=== PATIENT | male | born 1995 ===

== ENCOUNTER 2016-09-02 20:42 | Emergency (ER) | payer OTHER ==
[2016-09-02 20:49] VITALS: BMI 19.3
[2016-09-02 20:52] VITALS: BP 115/70; PULSE 75; RESP 18; TEMP 99.1; O2SAT 97
--- NOTE | 2016-09-02 21:02 | ED PDOC ---
Arrival/HPI - General Historian: Patient - General Chief Complaint: Flu-like Symptoms Time Seen by Provider: 09/02/16 20:53 - History of Present Illness Narrative History of Present Illness (Text): 09/02/16 21:00 21yo male in ED for complaint of sore throat since this morning. Denies drooling , stridor, dysphagia, fever, chills, abdominal pain, nausea, vomiting. (Sandra Dos Santos A) Past Medical History - Provider Review Nursing Documentation Reviewed: Yes - Infectious Disease Hx of Infectious Diseases: None - Cardiac Hx Cardiac Disorders: No - Pulmonary Hx Asthma: Yes Hx Bronchitis: No - Neurological Hx Neurological Disorder: No - HEENT Hx HEENT Disorder: No - Renal Hx Renal Disorder: No - Endocrine/Metabolic Hx Endocrine Disorders: No - Hematological/Oncological Hx Blood Disorders: No - Integumentary Hx Dermatological Disorder: No - Musculoskeletal/Rheumatological Hx Musculoskeletal Disorders: No - Gastrointestinal Hx Gastrointestinal Disorders: No - Genitourinary/Gynecological Hx Genitourinary Disorders: No - Psychiatric Hx Psychophysiologic Disorder: No Hx Substance Use: No - Anesthesia Hx Anesthesia: No Hx Anesthesia Reactions: No Hx Malignant Hyperthermia: No Family/Social History - Physician Review Nursing Documentation Reviewed: Yes Family/Social History: Unknown Family HX Smoking Status: Never Smoked Hx Alcohol Use: No Hx Substance Use: No Allergies/Home Meds Allergies/Adverse Reactions: Allergies No Known Allergies Allergy (Verified 09/02/16 20:49) Review of Systems - Physician Review All systems were reviewed & negative as marked: Yes - Review of Systems Constitutional: Normal Eyes: Normal ENT: Sore Throat Respiratory: Normal Cardiovascular: Normal Gastrointestinal: Normal Genitourinary Male: Normal Musculoskeletal: Normal Skin: Normal Neurological: Normal Endocrine: Normal Hemo/Lymphatic: Normal Psychiatric: Normal Physical Exam Vital Signs Reviewed: Yes Temperature: Afebrile Blood Pressure: Normal Pulse: Regular Respiratory Rate: Normal Appearance: Positive for: Well-Appearing, Non-Toxic, Comfortable Pain Distress: None Mental Status: Positive for: Alert and Oriented X 3 - Systems Exam Head: Present: Atraumatic, Normocephalic Pupils: Present: PERRL Extroacular Muscles: Present: EOMI Conjunctiva: Present: Normal Mouth: Present: Moist Mucous Membranes Pharnyx: Present: ERYTHEMA. No: EXUDATE, TONSILS ENLARGED, Peritonsilar Swelling, Uvular Deviation, Muffled/Hoarse Voice, Strider Neck: Present: Normal Range of Motion Respiratory/Chest: Present: Clear to Auscultation, Good Air Exchange. No: Respiratory Distress, Accessory Muscle Use Cardiovascular: Present: Regular Rate and Rhythm, Normal S1, S2. No: Murmurs Abdomen: Present: Normal Bowel Sounds. No: Tenderness, Distention, Peritoneal Signs Back: Present: Normal Inspection Upper Extremity: Present: Normal Inspection. No: Cyanosis, Edema Lower Extremity: Present: Normal Inspection. No: Edema Neurological: Present: GCS=15, CN II-XII Intact, Speech Normal Skin: Present: Warm, Dry, Normal Color. No: Rashes Psychiatric: Present: Alert, Oriented x 3, Normal Insight, Normal Concentration Vital Signs Temp Pulse Resp BP Pulse Ox 09/02/16 20:49 99.1 F 75 18 115/70 97 Medical Decision Making ED Course and Treatment: I was available for consultation during PA evaluation. The chart reviewed by me , and I agree with disposition. The documented history was done by the physician instructional design consultant. The documented physical exam was done by the physician instructional design consultant. The documented procedures were done by the physician instructional design consultant. ( Toribio Comer) 09/02/16 21:50 PT afebrile, hemodynamically stable. No drooling. No stridor noted. Rapid strep was negative. PT given viscous lido in ED for pain. DC home with lozenges. Advised to do warm salty water gargle. To f/u tiht MR next week for throat culture result. TRT ED for worsening symptoms. (Sandra Dos Santos) - Lab Interpretations Lab Results: Lab Results 09/02/16 21:14: Grp A Beta Strep Ag Negative - Medication Orders Current Medication Orders: Discontinued Medications Lidocaine HCl (Lidocaine 2% Viscous) 15 ml PO Q3H STA Stop: 09/02/16 21:41 Disposition/Present on Arrival - Present on Arrival Any Indicators Present on Arrival: No History of DVT/PE: No History of Uncontrolled Diabetes: No Urinary Catheter: No History of Decub. Ulcer: No History Surgical Site Infection Following: None - Disposition Have Diagnosis and Disposition been Completed?: Yes Disposition Time: 21:45 Patient Plan: Discharge - Disposition Diagnosis: Sore throat Disposition: HOME/ ROUTINE Patient Problems: Current Active Problems Problem Status Diagnosed Sore throat Acute Condition: STABLE Additional Instructions: Follow up with medical record for your result Follow up with your Doctor Return to ED for any new or worsening symptoms Prescriptions: Benzocaine/Menthol [Sore Throat Lozenge] 1 each MM DAILY #20 lozenge Referrals: Kori Zelaya, [Primary Care Provider] - Follow up with primary
== END 2016-09-02 21:45 | disposition home or self-care (01) ==
LOC: ED 20:42
DX: J02.9 Acute pharyngitis, unspecified (principal)